=== PATIENT | male | born 1995 | race Caucasian/White ===

== ENCOUNTER 2022-09-28 08:03 | Outpatient (CLI) | payer OTHER, SELFPAY ==
[2022-09-28 13:54] LABS: D Dimer Quantitative* < 0.27 ug/ml (0.00-0.50)
[2022-09-28 14:16] LABS: Albumin* 4.6 g/dL (3.3-5.0); Chloride* 109 mmol/L (96-114)
[2022-09-28 14:17] LABS: Potassium* 4.1 mmol/L (3.6-5.1); Sodium* 142 mmol/L (135-149)
[2022-09-28 14:19] LABS: Alkaline Phosphatase* 80 U/L (40-150); Aspartate Amino Transferase* 24 U/L (12-35); Bilirubin Total* 0.3 mg/dL (0.1-1.5); Carbon Dioxide* 26 mmol/L (20-32); Creatinine* 1.1 mg/dL (0.5-1.5); Estimated Glomerular Filt Rate 95 ml/min; Total Protein* 6.9 g/dL (6.0-8.3)
[2022-09-28 14:20] LABS: Alanine Aminotransferase* 30 U/L (4-50); Blood Urea Nitrogen* 15 mg/dL (5-24); Calcium* 9.4 mg/dL (8.4-10.6); Glucose* 81 mg/dL (60-115); Lipase* 53 U/L (23-300)
[2022-09-28 15:16] LABS: Troponin I* < 0.01 ng/mL (0.01-0.04)
== END 2022-09-28 08:04 | disposition home or self-care (01) ==
PROVIDERS: Visit Provider Family Medicine
DX: R07.9 Chest pain, unspecified (principal)
CPT/HCPCS: 80053; 83690; 84443; 84484; 85379